=== PATIENT | female | born 1965 | race Caucasian/White ===

== ENCOUNTER 2020-11-04 15:18 | Observation (INO) ==
[2020-11-04] MEDS ORDERED: Ringers Solution, Lactated 1,000 ML IVC SCH (16:15)
[2020-11-04] MEDS: *HR* HYDROmorphone (PF) 1 MG/ML SYRINGE IVP PRN ×3 (16:31→21:32)
[2020-11-04 16:51] LABS: Basophils # 0.1 K/mcL (0.0-0.2); Basophils % 0.6 %; Eosinophils # 0.3 K/mcL (0.0-0.6); Eosinophils % 3.9 %; Hematocrit 41.1 % (35.3-44.9); Hemoglobin 14.4 g/dL (11.5-15.4); Immature Granulocytes % 0.4 % (0-4); Lymphocytes # 2.1 K/mcL (0.6-4.6); Mean Corpuscular Hemoglobin 30.8 pg (28.0-33.3); Mean Platelet Volume 9.4 fL (9.4-12.4); Monocytes # 0.7 K/mcL (0.0-1.3); Monocytes % 8.5 %; Neutrophils # 4.6 K/mcL (1.6-8.9); Platelet Count 255 K/mcL (140-400); Red Blood Count 4.67 M/mcL (3.82-4.97); Red Cell Distribution Width 11.8 % (11.5-14.5); Segmented Neutrophils % 59.6 %; White Blood Count 7.8 K/mcL (4.3-11.1)
[2020-11-04] MEDS ORDERED: Ondansetron 4 MG/2 ML VIAL IVP PRN (20:09)
[2020-11-04] MEDS ORDERED: *HR* Meperidine 25 MG/ML SYRINGE IVP PRN (20:57)
[2020-11-04] MEDS ORDERED: Promethazine 6.25 MG in Water for inj. (sterile) 20 ML IVPB PRN (20:57)
[2020-11-04] MEDS ORDERED: *HR* HYDROmorphone PF 0.5 MG/0.5 ML SYRINGE IVP PRN (20:57)
[2020-11-04] MEDS ORDERED: Albuterol 2.5 MG/3 ML NEBULIZER IH PRN (20:57)
[2020-11-04] MEDS ORDERED: *HR* Rocuronium Bromide 50 MG/5 ML VIAL ONE (22:42)
[2020-11-04] MEDS ORDERED: *HR* FentaNYL (PF) 100 MCG/2 ML VIAL ONE (22:42)
[2020-11-04] MEDS ORDERED: Lidocaine HCL 4 ML Topical Solution (Laryng-O-Jet Kit Sterile Pak) TP ONE (22:42)
[2020-11-04] MEDS ORDERED: Lidocaine -MPF 2% 2 ML VIAL ONE (22:42)
[2020-11-04] MEDS ORDERED: *HR* Propofol 200 MG/20 ML VIAL IVP ONE (22:42)
[2020-11-05] MEDS ORDERED: Ondansetron 4 MG/2 ML VIAL ONE (00:15)
[2020-11-05] MEDS ORDERED: Neostigmine Methylsulfate 3 MG/3 ML SYRINGE ONE (01:05)
[2020-11-05] MEDS ORDERED: *HR* OxyCODONE/APAP 5/325 TABLET PO PRN (01:31)
[2020-11-05] MEDS ORDERED: Acetaminophen IV 1,000 MG/100 ML BAG IVPB ONE (01:45)
[2020-11-05] MEDS: *HR* HYDROmorphone (PF) 1 MG/ML SYRINGE IVP PRN (02:06)
[2020-11-05 06:25] VITALS: O2SAT 96
[2020-11-05 07:56] VITALS: BP 126/74; PULSE 80; TEMP 97.7
== END 2020-11-05 10:05 | disposition home or self-care (01) ==
LOC: 1NENUOBS
PROVIDERS: ADMIT Obstetrics & Gynecology; ATTEND Obstetrics & Gynecology